=== PATIENT | male | born 1995 | race African-American/Black ===

== ENCOUNTER 2018-12-11 22:41 | Emergency (ER) | payer SELFPAY ==
[~2018-12-11] VITALS: Ht 185.4 cm; Wt 81.0 kg
[2018-12-11 23:46] VITALS: BP 118/75
== END 2018-12-12 02:53 | disposition left against medical advice (07) ==
LOC: ER 22:41
DX: Z53.21 Procedure and treatment not carried out due to patient leaving prior to being seen by health care provider (principal)

== ENCOUNTER 2019-01-28 11:27 | Emergency (ER) | payer SELFPAY ==
[~2019-01-28] VITALS: Ht 188 cm; Wt 82.0 kg
[2019-01-28] MEDS ORDERED: IBUPROFEN 600MG TABLET PO STA (12:31)
[2019-01-28] MEDS ORDERED: PENICILLIN G BENZATHINE 1,200,000 UNITS/2ML SYR IM ONE (13:15)
[2019-01-28 13:43] VITALS: BP 120/77
== END 2019-01-28 13:45 | disposition home or self-care (01) ==
LOC: ER 12:07
DX: J02.0 Streptococcal pharyngitis (principal); B95.0 Streptococcus, group A, as the cause of diseases classified elsewhere
CPT/HCPCS: 87430; 96372; 99283; J0561

== ENCOUNTER 2019-02-11 15:03 | Emergency (ER) | payer SELFPAY ==
[~2019-02-11] VITALS: Ht 185.4 cm; Wt 82.0 kg
[2019-02-11] MEDS ORDERED: ACETAMINOPHEN 500MG TABLET PO ONE (15:45)
[2019-02-11 17:05] VITALS: BP 125/84
== END 2019-02-11 17:05 | disposition home or self-care (01) ==
LOC: ER 15:03
DX: G44.209 Tension-type headache, unspecified, not intractable (principal)
CPT/HCPCS: 99282

== ENCOUNTER 2022-08-09 11:35 | Emergency (ER) | payer MEDICAID ==
[~2022-08-09] VITALS: Ht 177.8 cm; Wt 82.0 kg
[2022-08-09 12:00] VITALS: BP 124/73
== END 2022-08-09 13:31 | disposition left against medical advice (07) ==
LOC: ER 11:35
DX: Z53.21 Procedure and treatment not carried out due to patient leaving prior to being seen by health care provider (principal)